=== PATIENT | female | born 1950 | race Caucasian/White ===

== ENCOUNTER → 2017-10-02 | Outpatient (CLI) | payer OTHER | END | disposition home or self-care (01) | LOC: LAB 08:39 | DX: I11.9 Hypertensive heart disease without heart failure (principal); E78.2 Mixed hyperlipidemia; E03.8 Other specified hypothyroidism; R73.09 Other abnormal glucose; Z12.11 Encounter for screening for malignant neoplasm of colon; N39.0 Urinary tract infection, site not specified; B96.89 Other specified bacterial agents as the cause of diseases classified elsewhere; D63.8 Anemia in other chronic diseases classified elsewhere; M06.4 Inflammatory polyarthropathy ==

== ENCOUNTER 2018-04-13 10:13 | Outpatient (CLI) | payer OTHER | END 2018-04-13 10:26 | disposition home or self-care (01) | LOC: TOM 10:13 | DX: M25.562 Pain in left knee (principal); Z96.652 Presence of left artificial knee joint ==

== ENCOUNTER → 2018-09-05 | Emergency (ER) | payer OTHER ==
[~2018-09-05] VITALS: Ht 154.9 cm; Wt 77.1 kg
[~2018-09-05] MED LIST: [UNRECOGNIZED DRUG - OTHER]
== END | disposition home or self-care (01) ==
LOC: ER 14:35
DX: R55 Syncope and collapse (principal)

== ENCOUNTER → 2018-11-09 | Outpatient (CLI) | payer OTHER | END | disposition home or self-care (01) | LOC: RAD 11:35 | DX: Z96.652 Presence of left artificial knee joint (principal); T84.033A Mechanical loosening of internal left knee prosthetic joint, initial encounter ==

== ENCOUNTER → 2019-11-11 08:59 | Outpatient (CLI) | payer OTHER | END | disposition home or self-care (01) | LOC: LAB 08:59 | PROVIDERS: ATTEND Internal Medicine | DX: Z20.828 Contact with and (suspected) exposure to other viral communicable diseases (principal) ==

== ENCOUNTER → 2020-01-31 | Outpatient (CLI) | payer OTHER | END | disposition home or self-care (01) | LOC: SONOGRAMA 08:08 | PROVIDERS: ATTEND Internal Medicine | DX: R16.0 Hepatomegaly, not elsewhere classified (principal); K76.0 Fatty (change of) liver, not elsewhere classified; N17.1 Acute kidney failure with acute cortical necrosis ==

== ENCOUNTER → 2022-04-30 | Outpatient (CLI) | payer OTHER | END | disposition home or self-care (01) | LOC: RAD 11:03 | PROVIDERS: ATTEND Internal Medicine Rheumatology | DX: M17.11 Unilateral primary osteoarthritis, right knee (principal) ==

== ENCOUNTER 2022-10-26 10:26 | Outpatient (CLI) | payer OTHER | END 2022-10-26 10:30 | disposition home or self-care (01) | LOC: RAD 10:26 | PROVIDERS: ATTEND Internal Medicine Rheumatology | DX: M17.0 Bilateral primary osteoarthritis of knee (principal) ==

== ENCOUNTER → 2023-02-16 09:36 | Outpatient (CLI) | payer OTHER | END | disposition home or self-care (01) | LOC: NUCLEAR 09:36 | PROVIDERS: ATTEND Specialist | DX: M81.0 Age-related osteoporosis without current pathological fracture (principal) ==

== ENCOUNTER 2023-02-16 10:13 | Outpatient (CLI) | payer OTHER | END 2023-02-16 10:14 | disposition home or self-care (01) | LOC: SONOGRAMA 10:13 | PROVIDERS: ATTEND Specialist | DX: N83.291 Other ovarian cyst, right side (principal) ==

== ENCOUNTER 2024-01-11 10:43 | Outpatient (CLI) | payer OTHER | END 2024-01-11 10:50 | disposition home or self-care (01) | LOC: RAD 10:43 | PROVIDERS: ATTEND Physical Medicine & Rehabilitation Pain Medicine | DX: M12.861 Other specific arthropathies, not elsewhere classified, right knee (principal); M25.561 Pain in right knee; M25.562 Pain in left knee; Z96.652 Presence of left artificial knee joint ==

== ENCOUNTER 2024-09-28 12:02 | Outpatient (CLI) | payer OTHER | END 2024-09-28 12:04 | disposition home or self-care (01) | LOC: RAD 12:02 | PROVIDERS: ATTEND Orthopaedic Surgery Adult Reconstructive Orthopaedic Surgery | DX: M17.11 Unilateral primary osteoarthritis, right knee (principal); Z96.652 Presence of left artificial knee joint ==

== ENCOUNTER 2024-12-26 10:59 | Outpatient (CLI) | payer OTHER | END 2024-12-26 11:04 | disposition home or self-care (01) | LOC: RAD 10:59 | DX: M76.812 Anterior tibial syndrome, left leg (principal); M19.90 Unspecified osteoarthritis, unspecified site ==

== ENCOUNTER → 2025-02-19 10:59 | Outpatient (CLI) | payer OTHER | END | disposition home or self-care (01) | LOC: NUCLEAR 10:59 | DX: Z13.820 Encounter for screening for osteoporosis (principal); M81.0 Age-related osteoporosis without current pathological fracture ==